=== PATIENT | female | born 1945 ===

== ENCOUNTER 2017-09-03 21:23 | Emergency (ER) | payer MEDICARE ==
[2017-09-03 21:43] VITALS: PULSE 85; TEMP 97.9
[2017-09-03] MEDS ORDERED: Pantoprazole 40 mg EC Tab PO STA (22:33)
--- NOTE | 2017-09-03 22:33 | C.PDOC ---
History Of Present Illness 72 y/o female brought to the ED via EMS after she began feeling lightheaded, dizzy, and anxious. States she started a new blood pressure medication, and began feeling symptoms shortly after taking it tonight. Otherwise denies any chest pain, SOB, or palpitations. Patient is speaking in complete sentences. PMHx is significant for hypertension, diabetes, hypothyroidism, anxiety, and cochlear implant placement. Time Seen by Provider: 09/03/17 22:28 Chief Complaint (Nursing): Anxiety History Per: Patient History/Exam Limitations: no limitations Onset/Duration Of Symptoms: Hrs Current Symptoms Are (Timing): Still Present Modifying Factor(s): None Severity: None Pain Scale Rating Of: 0 Associated Symptoms: Anxiety Involuntary Hold By: None Additional History Per: EMS Past Medical History Reviewed: Historical Data, Nursing Documentation, Vital Signs Vital Signs: Last Vital Signs Temp 97.9 F 09/03/17 21:34 Pulse 85 09/03/17 23:19 Resp 18 09/03/17 23:19 BP 133/67 09/03/17 23:19 Pulse Ox 98 09/03/17 23:19 - Medical History PMH: Anxiety, Diabetes, HTN, Hypothyroidism Other Surgeries: Cochlear implant - [facility] Procedures SUTURE OF LIP LACERATION (03/08/14) Family History: States: No Known Family Hx - Social History Hx Tobacco Use: No Hx Alcohol Use: No Hx Substance Use: No - Immunization History Hx Tetanus Toxoid Vaccination: No Hx Influenza Vaccination: Yes Hx Pneumococcal Vaccination: Yes Review Of Systems Cardiovascular: Positive for: Light Headedness. Negative for: Chest Pain, Palpitations Respiratory: Negative for: Shortness of Breath Neurological: Positive for: Dizziness Psych: Positive for: Anxiety Physical Exam - Physical Exam Appears: No Acute Distress Skin: Warm, Dry Head: Normacephalic Eye(s): bilateral: Normal Inspection Oral Mucosa: Moist Neck: Trachea Midline, Supple Chest: Symmetrical Cardiovascular: Rhythm Regular Respiratory: No Rales, No Rhonchi, No Wheezing Gastrointestinal/Abdominal: Soft, No Tenderness, No Distention Extremity: Bilateral: Atraumatic, Normal Color And Temperature, Normal ROM Pulses: Left Dorsalis Pedis: Normal, Right Dorsalis Pedis: Normal Neurological/Psych: Oriented x3, Other (Appears anxious) Gait: Steady ED Course And Treatment O2 Sat by Pulse Oximetry: 100 (RA) Pulse Ox Interpretation: Normal Progress Note: Patient treated with PO Meclizine, Protonix, and Zofran ODT. Reevaluation Time: 00:56 Reassessment Condition: Improved Disposition Counseled Patient/Family Regarding: Studies Performed, Diagnosis, Need For Followup, Rx Given - Disposition Referrals: Ariana Howard MD [Staff Provider] - Disposition: HOME/ ROUTINE Disposition Time: 22:33 Condition: FAIR Additional Instructions: Please return if symptoms recur Prescriptions: Lorazepam [Ativan] 0.5 mg PO BID PRN #10 tab PRN Reason: Anxiety Instructions: Anxiety, Adult (DC) Forms: [employer] (Arabic) - Clinical Impression Clinical Impression: Anxiety - Scribe Statement The provider has reviewed the documentation as recorded by the Scribe (Lori Kuhn) Provider Attestation: All medical record entries made by the Scribe were at my direction and personally dictated by me. I have reviewed the chart and agree that the record accurately reflects my personal performance of the history, physical exam, medical decision making, and the department course for this patient. I have also personally directed, reviewed, and agree with the discharge instructions and disposition.
[2017-09-03] MEDS ORDERED: Pantoprazole 40 mg EC Tab PO ONE (22:45)
[2017-09-03 23:20] VITALS: BP 133/67; RESP 18
[2017-09-04] MEDS ORDERED: Sucralfate 1 gm/10 ml Oral Susp UD PO STA (00:26)
[2017-09-04] MEDS ORDERED: Sucralfate 1 gm/10 ml Oral Susp UD ONE (00:30)
[2017-09-04 00:59] VITALS: O2SAT 100
== END 2017-09-04 01:10 | disposition home or self-care (01) ==
LOC: C.ER 21:23
DX: F41.9 Anxiety disorder, unspecified (principal)

== ENCOUNTER 2017-09-07 18:35 | Emergency (ER) | payer MEDICARE ==
[2017-09-07 18:44] VITALS: RESP 16; TEMP 98.2; O2SAT 100
[2017-09-07] MEDS ORDERED: Sodium Chloride 0.9% 1,000 ML IV ONE (19:55)
--- NOTE | 2017-09-07 19:58 | C.PDOC ---
Chief Complaint (Nursing): High Blood Pressure Past Medical History Vital Signs: Last Vital Signs Temp 98.2 F 09/07/17 18:37 Pulse 85 09/07/17 18:37 Resp 16 09/07/17 18:37 BP 165/93 H 09/07/17 18:37 Pulse Ox 100 09/07/17 18:37 - Medical History PMH: Anxiety, Diabetes, HTN, Hypothyroidism - [facility] Procedures SUTURE OF LIP LACERATION (03/08/14) - Social History Hx Tobacco Use: No Hx Alcohol Use: No Hx Substance Use: No - Immunization History Hx Tetanus Toxoid Vaccination: No Hx Influenza Vaccination: Yes Hx Pneumococcal Vaccination: Yes ED Course And Treatment O2 Sat by Pulse Oximetry: 100 Disposition - Disposition
--- NOTE | 2017-09-07 19:59 | C.PDOC ---
History Of Present Illness 72 year old female is sent to the ED by Dr. Mcdonald for evaluation of headache and HTN. Patient reports she feel pressure in the back of her neck. Patient's BP on arrival was noted to be 163/93. Patient denies headache, blurry vision, nausea, vomit, CP, SOB. Chief Complaint (Nursing): High Blood Pressure History Per: Patient History/Exam Limitations: no limitations Onset/Duration Of Symptoms: Days Current Symptoms Are (Timing): Still Present Associated Symptoms: Headache Quality Of Symptoms: Asymptomatic Recent travel outside of the [place]: No Additional History Per: Patient Past Medical History Reviewed: Historical Data, Nursing Documentation, Vital Signs Vital Signs: Last Vital Signs Temp 98.2 F 09/07/17 18:37 Pulse 85 09/07/17 18:37 Resp 16 09/07/17 18:37 BP 173/82 H 09/07/17 21:01 Pulse Ox 100 09/07/17 21:55 - Medical History PMH: Anxiety, Diabetes, HTN, Hypothyroidism Surgical History: No Surg Hx - [facility] Procedures SUTURE OF LIP LACERATION (03/08/14) Family History: States: Unknown Family Hx - Social History Hx Tobacco Use: No Hx Alcohol Use: No Hx Substance Use: No - Immunization History Hx Tetanus Toxoid Vaccination: No Hx Influenza Vaccination: Yes Hx Pneumococcal Vaccination: Yes Review Of Systems Constitutional: Negative for: Fever, Chills Eyes: Negative for: Vision Change Cardiovascular: Negative for: Chest Pain Respiratory: Negative for: Shortness of Breath Gastrointestinal: Negative for: Nausea, Vomiting Musculoskeletal: Positive for: Neck Pain Neurological: Positive for: Headache. Negative for: Weakness, Numbness, Dizziness Physical Exam - Physical Exam Appears: Non-toxic, No Acute Distress Skin: Normal Color, Warm, Dry Head: Atraumatic, Normacephalic Eye(s): bilateral: Normal Inspection Oral Mucosa: Moist Neck: Normal ROM, Supple Chest: Symmetrical Cardiovascular: Rhythm Regular Respiratory: Normal Breath Sounds, No Rales, No Rhonchi, No Wheezing Gastrointestinal/Abdominal: Soft, No Tenderness, No Guarding, No Rebound Extremity: Normal ROM, No Tenderness, No Swelling Neurological/Psych: Oriented x3, Normal Speech Gait: Steady ED Course And Treatment - Laboratory Results Result Diagrams: 09/07/17 20:17 09/07/17 20:17 ECG: Interpreted By Me, Viewed By Me ECG Rhythm: Sinus Rhythm ECG Interpretation: No Acute Changes Interpretation Of ECG: NSR, possible LAE, borderline tracings Rate From EC O2 Sat by Pulse Oximetry: 100 (ON RA) Pulse Ox Interpretation: Normal - CT Scan/US CT Cspine Other Rad Studies (CT/US): Read By Radiologist, Radiology Report Reviewed CT/US Interpretation: FINDINGS: Vertebrae: Unremarkable. No acute fracture. Discs/spinal canal/neural foramina: C12: Unremarkable. C2-3: Unremarkable. C3 -4: Posterior disc osteophyte ridge. Mild disc space narrowing. The stenosis. C4-5: Unremarkable. C5-6: Uncovertebral hypertrophy. Mild bilateral foraminal stenosis. No central stenosis. C6-7: Unremarkable. C7-T1: Unremarkable No acute findings. No spinal canal stenosis. Soft tissues: There is calcification noted within the palatine tonsils bilaterally. The left lobe of the thyroid is not clearly seen. Auditory: The ossicles in the left middle ear are not seen. There is under pneumatization of the left. mastoid.Incidental note is made of opacification of the right mastoid air cells and a transmastoid right. cochlear implant. Lung apices: Unremarkable as visualized. IMPRESSION: 1. Mild degenerative disc disease. Mild foraminal stenosis at C5-6. 2. Fluid noted within the right mastoid air cells may be related to transmastoid right cochlear implant. Clinical correlation needed. 3. 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 Under pneumatization of the left mastoid. Thank you for allowing us to participate in the care of your patient. Dictated and Authenticated by: Alisha Herrera MD. 09/07/2017 9:18 PM Eastern Time ([place] & [place]) CT head Other Rad Studies (CT/US): Read By Radiologist, Radiology Report Reviewed CT/US Interpretation: FINDINGS: Brain: Unremarkable. No hemorrhage. No significant white matter disease. No edema. Ventricles: Unremarkable. No ventriculomegaly. Bones/joints: Unremarkable. No acute fracture. Soft tissues : Unremarkable. Sinuses: A mucus retention cyst is noted in the floor the right maxillary sinus. Mastoid air cells: Fluid/soft tissue is noted within the right mastoid air cells. There is under. pneumatization of the left mastoid air cells. Auditory system: The left ossicles are absent from the middle ear cavity.The wire from the device. terminates within the right cochlea. Tubes, lines and devices: Beam hardening artifact is noted related to cochlear implant device. implanted within the soft tissues of the scalp overlying the right posterior parietal bone. This degrades. images of the right cerebral hemisphere. IMPRESSION: 1. Images degraded by cochlear implant. 2. Soft tissue/fluid noted within the right mastoid may be related to transmastoid placement of. cochlear implant. Clinical correlation suggested... Thank you for allowing us to participate in the care of your patient. Dictated and Authenticated by: Alisha Herrera MD. 09/07/2017 9:27 PM Eastern Time ([place] & [place]) Medical Decision Making Medical Decision Making: Impression: Sent by Plan: * CT CSpine * CT head * Ativan 0.25 mg PO * Coreg 25 mg PO * Norvasac 5 mg PO * IV fluids * Toradol 30 mg IVP 21:54 - spoke with Dr. Mcdonald and Dr. Anita Lane about the patient, both agree with plan for follow up in their office. Patient feels much better will be D/C home. Disposition Discussed With Dr.: Michael Mcdonald (notofoed Dr. Gardner) Doctor Will See Patient In The: Office Counseled Patient/Family Regarding: Diagnosis - Disposition Referrals: Ariana Howard MD [Staff Provider] - Disposition: HOME/ ROUTINE Disposition Time: 21:58 Condition: IMPROVED Prescriptions: ALPRAZolam [Xanax] 0.25 mg PO BID #7 tab Naproxen 375 mg PO TIDPC #14 tablet Instructions: High Blood Pressure (DC), Hyponatremia (DC) Forms: [employer] (Czech) - POA Present On Arrival: None - Clinical Impression Clinical Impression: Hypertension, Cervical arthritis, Hyponatremia - Scribe Statement The provider has reviewed the documentation as recorded by the Scribe Sterling Garcia All medical record entries made by the Scribe were at my direction and personally dictated by me. I have reviewed the chart and agree that the record accurately reflects my personal performance of the history, physical exam, medical decision making, and the department course for this patient. I have also personally directed, reviewed, and agree with the discharge instructions and disposition.
[2017-09-07 20:23] LABS: BASO # 0.1 K/uL (0.0-0.2); BASO % 1.8 % (0.0-2.0); EOS # 0.2 K/uL (0.0-0.7); EOS % 2.5 % (0.0-4.0); HEMOGLOBIN 11.1 g/dL (11.0-16.0); LYMPH # 3.5 K/uL (1.0-4.3); LYMPH % 55.9 % (20.0-40.0); MEAN CELL VOLUME 61.9 fL (81.0-99.0); MEAN CORPUSCULAR HEMOGLOBIN 19.8 pg (27.0-31.0); MEAN PLATELET VOLUME 8.1 fL (7.2-11.7); MONO # 0.4 K/uL (0.0-0.8); MONO % 5.6 % (0.0-10.0); NEUT # 2.2 K/uL (1.8-7.0); NEUT % 34.2 % (50.0-75.0); NRBC % 0.2 % (0.0-2.0); RBC 5.63 Mil/uL (3.80-5.20); RED CELL DISTRIBUTION WIDTH 16.4 % (11.5-14.5); WHITE BLOOD COUNT 6.3 K/uL (4.8-10.8)
[2017-09-07 20:40] LABS: ALB/GLOB RATIO 1.5 (1.0-2.1); ALBUMIN 5.2 g/dL (3.5-5.0); ALT/SGPT 29 U/L (9-52); AST/SGOT 32 U/L (14-36); BLOOD UREA NITROGEN 12 mg/dL (7-17); CALCIUM 10.1 mg/dl (8.6-10.4); GFR AFRICAN-AMERICAN > 60; GFR NON-AFRICAN AMERICAN > 60
[2017-09-07] MEDS ORDERED: Sodium Chloride 0.9% 1,000 ML ONE (20:53)
[2017-09-07 22:01] VITALS: BP 118/62; PULSE 69
--- NOTE | 2017-09-08 08:45 | CT ---
PROCEDURE: CT HEAD WITHOUT CONTRAST. HISTORY: Headache COMPARISON: None available. TECHNIQUE: Axial computed tomography images were obtained through the head/brain without intravenous contrast. Radiation dose: Total exam DLP = 781.07 mGy-cm. This CT exam was performed using one or more of the following dose reduction techniques: Automated exposure control, adjustment of the mA and/or kV according to patient size, and/or use of iterative reconstruction technique. FINDINGS: HEMORRHAGE: No intracranial hemorrhage. BRAIN: Evaluation of the right parietal lobe is limited due to extensive streak artifacts from right cochlea implant. There are mild chronic microangiopathic changes. There is no mass, mass effect or abnormal extra-axial fluid collection. There is no territorial infarction. There are coarse atherosclerotic calcifications in the cavernous carotid arteries. VENTRICLES: There is mild age-related global parenchymal volume loss and proportionate enlargement of the ventricles and cortical sulci. CALVARIUM: The skull base and calvarium are normal. PARANASAL SINUSES: There is a small retention cyst/ polyp in the right maxillary sinus. The remaining included paranasal sinuses are predominantly clear. MASTOID AIR CELLS: Status post right mastoidectomy. Cough clear implant is visualized and there is fluid in the mastoid tip. The left mastoid air cells are underdeveloped. OTHER FINDINGS: None. IMPRESSION: Normal CT of the Head.
--- NOTE | 2017-09-08 09:40 | CT ---
PROCEDURE: CT Cervical Spine without contrast HISTORY: neck pressure COMPARISON: None available. TECHNIQUE: Axial computed tomography images were obtained of the cervical spine without the use of intravenous contrast. Coronal and sagittal reformatted images were created and reviewed. Radiation dose: Total exam DLP = 390.93 mGy-cm. This CT exam was performed using one or more of the following dose reduction techniques: Automated exposure control, adjustment of the mA and/or kV according to patient size, and/or use of iterative reconstruction technique. FINDINGS: VERTEBRAE: There is mild dextrocurvature in the cervical spine. There is normal alignment of the cervical vertebral bodies. There is straightening of the cervical spine with loss of normal cervical lordosis. Vertebral height is normal. Bone mineralization is normal. There is no acute fracture or traumatic anterior listhesis. The craniocervical junction is normal. The atlantoaxial joint normal. DISCS/SPINAL CANAL/NEURAL FORAMINA: There is mild multilevel degenerative disc disease due to combination of disc osteophyte complexes and multilevel facet arthropathy, worse at C5-6 with [id number] right and severe left neural foraminal narrowing and mild spinal canal stenosis PARASPINAL SOFT TISSUES: Unremarkable. OTHER FINDINGS: None. IMPRESSION: No acute fracture or traumatic anterior listhesis. Straightening of the cervical spine may be positional or related to muscle spasm. . Mild multilevel degenerative disc disease, worse at C5-6 with moderate to severe right and severe left neural foraminal narrowing and mild spinal canal stenosis. A preliminary report was provided by [employer].
--- NOTE | 2017-09-11 12:05 | CARD ---
APPROVED REPORT EKG Measurement Heart [id number] <Conclusion> Normal sinus rhythm Possible Left atrial enlargement Borderline ECG
== END 2017-09-07 22:25 | disposition home or self-care (01) ==
LOC: C.ER 18:35
DX: I10 Essential (primary) hypertension (principal); M13.88 Other specified arthritis, other site; E87.1 Hypo-osmolality and hyponatremia
CPT/HCPCS: 70450; 72125; 80053; 85025; 93005; 96374; 96375; 99284; J1885; J2060; J7030

== ENCOUNTER 2017-09-25 16:14 | Inpatient (IN) | payer MEDICARE ==
--- NOTE | 2017-09-25 18:24 | RAD ---
Date of service: 09/25/2017 PROCEDURE: CHEST RADIOGRAPH, 1 VIEW HISTORY: SOB COMPARISON: None available. FINDINGS: LUNGS: Clear. PLEURA: No pneumothorax or pleural fluid seen. CARDIOVASCULAR: Atherosclerotic aortic calcifications. Cardiomediastinal silhouette enlarged. OSSEOUS STRUCTURES: Degenerative changes. VISUALIZED UPPER ABDOMEN: Normal. OTHER FINDINGS: None. IMPRESSION: No active disease.
--- NOTE | 2017-09-25 18:45 | C.PDOC ---
History Of Present Illness 72 year old female presents to the ER stating she has been mildly dizzy for the past few days. Patient had a similar presentation for the same before on and was found to be hyponatremic with a sodium of 127, at the time patient left home stating she would follow up as outpatient. During prior visit patient was educated not to overdrink water as she was drinking 8 large glasses in the morning, she now claims she only drinks 1-2 large glasses a day. Denies fever, chills, nausea, or vomiting. Time Seen by Provider: 09/25/17 17:52 Chief Complaint (Nursing): Dizziness/Lightheaded History Per: Patient History/Exam Limitations: no limitations Onset/Duration Of Symptoms: Days Current Symptoms Are (Timing): Still Present Seizure Or Post-ictal Symptoms: None Possible Causative Factor(s): Other (Not known) Fall Associated With With Symptoms: No Recent travel outside of the [place]: No Past Medical History Reviewed: Historical Data, Nursing Documentation, Vital Signs Vital Signs: Last Vital Signs Temp 98.3 F 09/25/17 16:31 Pulse 74 09/25/17 19:42 Resp 18 09/25/17 19:42 BP 138/76 09/25/17 19:42 Pulse Ox 99 09/25/17 19:30 - Medical History PMH: Anxiety, Diabetes, HTN, Hyperthyroidism (Thyroidectomy), Hypothyroidism - [facility] Procedures SUTURE OF LIP LACERATION (03/08/14) Family History: States: No Known Family Hx - Social History Hx Tobacco Use: No Hx Alcohol Use: No Hx Substance Use: No - Immunization History Hx Tetanus Toxoid Vaccination: No Hx Influenza Vaccination: Yes Hx Pneumococcal Vaccination: Yes Review Of Systems Constitutional: Negative for: Fever, Chills Cardiovascular: Negative for: Chest Pain, Palpitations Respiratory: Negative for: Cough, Shortness of Breath Gastrointestinal: Negative for: Nausea, Vomiting Neurological: Positive for: Dizziness. Negative for: Weakness, Numbness Physical Exam - Physical Exam Appears: Non-toxic, Other (Elderly, anxious) Skin: Normal Color, Warm, Dry Head: Atraumatic, Normacephalic Eye(s): bilateral: Normal Inspection, PERRL, EOMI Ear(s): Bilateral: Normal (Hard of hearing) Oral Mucosa: Moist Neck: Normal, Supple Chest: Symmetrical, No Tenderness Cardiovascular: Rhythm Regular Respiratory: Normal Breath Sounds, No Rales, No Rhonchi, No Wheezing Gastrointestinal/Abdominal: Soft, No Tenderness Back: No CVA Tenderness Neurological/Psych: Oriented x3, Normal Speech ED Course And Treatment - Laboratory Results Result Diagrams: 09/25/17 18:48 09/25/17 18:48 Lab Interpretation: Abnormal (+ hyponatremia) ECG: Interpreted By Me ECG Rhythm: Sinus Rhythm ECG Interpretation: Normal Rate From EC O2 Sat by Pulse Oximetry: 99 Pulse Ox Interpretation: Normal - Radiology CXR: Interpreted by Me CXR Interpretation: Yes: No Acute Disease - Other Rad cxr X-Ray: Viewed By Me, Read By Radiologist Interpretation: IMPRESSION: No active disease. Reevaluation Time: 19:28 Reassessment Condition: Unchanged - Physician Consult Information Outcome Of Conversation: 1914: d/w Dr. Gonzalez, covering Dr. Jay Howard's pt's, . ok to admit. 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 Disposition Doctor Will See Patient In The: Hospital Counseled Patient/Family Regarding: Studies Performed, Diagnosis - Disposition Disposition: HOSPITALIZED Disposition Time: 19:29 Condition: GOOD - Clinical Impression Clinical Impression: Dizziness, Hyponatremia - Scribe Statement The provider has reviewed the documentation as recorded by the Scribyany Cruz All medical record entries made by the Carlozibe were at my direction and personally dictated by me. I have reviewed the chart and agree that the record accurately reflects my personal performance of the history, physical exam, medical decision making, and the department course for this patient. I have also personally directed, reviewed, and agree with the discharge instructions and disposition.
[2017-09-25 18:53] LABS: MEAN CELL VOLUME 61.7 fL (81.0-99.0); MEAN CORPUSCULAR HEMOGLOBIN 19.9 pg (27.0-31.0); MEAN CORPUSCULAR HGB CONC 32.3 g/dL (33.0-37.0); MEAN PLATELET VOLUME 8.3 fL (7.2-11.7); PLATELET COUNT 328 K/uL (130-400); RED CELL DISTRIBUTION WIDTH 16.4 % (11.5-14.5); WHITE BLOOD COUNT 6.9 K/uL (4.8-10.8)
[2017-09-25 19:04] LABS: SQUAMOUS EPITHIAL < 1 /hpf (0-5); URINE BILIRUBIN NEGATIVE (NEGATIVE); URINE BLOOD NEGATIVE (NEGATIVE); URINE CLARITY Clear (Clear); URINE COLOR Straw (YELLOW); URINE GLUCOSE (UA) 2+ mg/dL (Normal); URINE LEUKOCYTE ESTERASE NEG Leu/uL (Negative); URINE PROTEIN NEGATIVE (NEGATIVE); URINE UROBILINOGEN NORMAL mg/dL (0.2-1.0)
[2017-09-25 19:14] LABS: ALB/GLOB RATIO 1.5 (1.0-2.1); ALBUMIN 4.9 g/dL (3.5-5.0); ALT/SGPT 27 U/L (9-52); AST/SGOT 26 U/L (14-36); B-TYPE NATRIURETIC PEPTIDE 96.9 pg/mL (0-900); BLOOD UREA NITROGEN 11 mg/dL (7-17); CALCIUM 9.1 mg/dl (8.6-10.4); GFR AFRICAN-AMERICAN > 60; GFR NON-AFRICAN AMERICAN > 60
[2017-09-25 19:42] LABS: BASOPHIL 1 % (0-2); EOSINOPHIL 3 % (0-4); LYMPHOCYTE 30 % (20-40); MONOCYTE 8 % (0-10); NEUTROPHIL 47 % (50-75); PLATELET ESTIMATE NORMAL (NORMAL); REACTIVE LYMPHOCYTES 11 % (0-0); TOTAL CELLS COUNTED 100
[2017-09-25 19:43] LABS: ANISOCYTOSIS SLIGHT; HYPOCHROMIC MODERATE; MICROCYTOSIS MODERATE; OVALOCYTES SLIGHT; TARGET CELLS SLIGHT; TEARDROP CELLS SLIGHT
[2017-09-25 19:44] LABS: BURR CELLS SLIGHT; LARGE PLATELETS PRESENT; SCHISTOCYTES SLIGHT
[2017-09-25] MEDS: Sodium Chloride 0.9% 1,000 ML IV SCH (20:45)
--- NOTE | 2017-09-25 23:57 | CP.PCM.HP ---
History of Present Illness - History of Present Illness History of Present Illness: History Of Present Illness 72 year old female presents to the ER stating she has been mildly dizzy for the past few days. Patient had a similar presentation for the same before on and was found to be hyponatremic with a sodium of 127, at the time patient left home stating she would follow up as outpatient. During prior visit patient was educated not to overdrink water as she was drinking 8 large glasses in the morning, she now claims she only drinks 1-2 large glasses a day. Denies fever, chills, nausea, or vomiting. Past Patient History - Infectious Disease Hx of Infectious Diseases: None - Past Social History Smoking Status: Never Smoked - CARDIAC Hx Hypertension: Yes - NEUROLOGICAL Hx Dizziness: Yes - HEENT Hx HEENT Problems: Yes 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 - ENDOCRINE/METABOLIC Hx Diabetes Mellitus Type 2: Yes Hx Hyperthyroidism: Yes (Thyroidectomy) Hx Hypothyroidism: Yes - INTEGUMENTARY Hx Dermatological Problems: No - MUSCULOSKELETAL/RHEUMATOLOGICAL Hx Musculoskeletal Disorders: No Hx Falls: Yes - GASTROINTESTINAL Hx Gastrointestinal Disorders: No - GENITOURINARY/GYNECOLOGICAL Hx Genitourinary Disorders: No - PSYCHIATRIC Hx Substance Use: No - SURGICAL HISTORY Hx Surgeries: Yes Hx Section: Yes (x2) Hx Hysterectomy: Yes Hx Thyroidectomy: Yes Other/Comment: Cochlear Implant - ANESTHESIA Hx Anesthesia: Yes Hx Anesthesia Reactions: No Meds Allergies/Adverse Reactions: Allergies Allergy/AdvReac Type Severity Reaction Status Date / Time clopidogrel [From Plavix] Allergy Severe ANAPHYLAXIS Verified 09/07/17 18:37 clindamycin Allergy Verified 09/25/17 16:40 hydralazine Allergy Verified 09/25/17 16:40 Results - Vital Signs Recent Vital Signs: Last Vital Signs Temp 98 F 09/25/17 21:25 Pulse 73 09/25/17 21:25 Resp 18 09/25/17 21:25 BP 139/74 09/25/17 23:31 Pulse Ox 99 09/25/17 21:25 - Labs Result Diagrams: 09/25/17 18:48 09/25/17 18:48 Labs: Laboratory Results - last 24 hr 09/25/17 09/25/17 09/25/17 18:48 18:48 18:48 WBC 6.9 RBC 5.50 H Hgb 11.0 Hct 33.9 L MCV 61.7 L MCH 19.9 L MCHC 32.3 L RDW 16.4 H Plt Count 328 MPV 8.3 Neutrophils % (Manual) 47 L Lymphocytes % (Manual) 30 Reactive Lymphs % 11 H Monocytes % (Manual) 8 Eosinophils % (Manual) 3 Basophils % (Manual) 1 Platelet Estimate Normal Large Platelets Present Hypochromasia (manual) Moderate Anisocytosis (manual) Slight Microcytosis (manual) Moderate Target Cells Slight Tear Drop Cells Slight Ovalocytes Slight Cynthia Cells Slight Schistocytes Slight Sodium 129 L Potassium 4.7 Chloride 93 L Carbon Dioxide 20 L Anion Gap 21 H BUN 11 Creatinine 0.5 L Est GFR ( Amer) > 60 Est GFR (Non-Af Amer) > 60 POC Glucose (mg/dL) Random Glucose 135 H Calcium 9.1 Total Bilirubin 0.5 AST 26 ALT 27 Alkaline Phosphatase 83 Troponin I < 0.0120 NT-Pro-B Natriuret Pep 96.9 Total Protein 8.1 Albumin 4.9 Globulin 3.2 Albumin/Globulin Ratio 1.5 Urine Color Straw Urine Clarity Clear Urine pH 6.0 Ur Specific [place] 1.008 Urine Protein Negative Urine Glucose (UA) 2+ H Urine Ketones Negative Urine Blood Negative Urine Nitrate Negative Urine Bilirubin Negative Urine Urobilinogen Normal Ur Leukocyte Esterase Neg Urine WBC (Auto) 1 Urine RBC (Auto) < 1 Ur Squamous Epith Cells < 1 09/25/17 22:38 WBC RBC Hgb Hct MCV MCH MCHC RDW Plt Count MPV Neutrophils % (Manual) Lymphocytes % (Manual) Reactive Lymphs % Monocytes % (Manual) Eosinophils % (Manual) Basophils % (Manual) Platelet Estimate Large Platelets Hypochromasia (manual) Anisocytosis (manual) Microcytosis (manual) Target Cells Tear Drop Cells Ovalocytes Cynthia Cells Schistocytes Sodium Potassium Chloride Carbon Dioxide Anion Gap BUN Creatinine Est GFR ( Amer) Est GFR (Non-Af Amer) POC Glucose (mg/dL) 143 H Random Glucose Calcium Total Bilirubin AST ALT Alkaline Phosphatase Troponin I NT-Pro-B Natriuret Pep Total Protein Albumin Globulin Albumin/Globulin Ratio Urine Color Urine Clarity Urine pH Ur Specific [place] Urine Protein Urine Glucose (UA) Urine Ketones Urine Blood Urine Nitrate Urine Bilirubin Urine Urobilinogen Ur Leukocyte Esterase Urine WBC (Auto) Urine RBC (Auto) Ur Squamous Epith Cells
[2017-09-26 00:21] VITALS: RESP 20
[2017-09-26] MEDS: Multiple Vitamins Tab PO SCH (09:00)
[2017-09-26] MEDS: Enoxaparin 40 mg Syringe SC SCH (09:01)
[2017-09-26] MEDS: Sodium Chloride 0.9% 1,000 ML IV SCH ×2 (09:10→18:24)
[2017-09-26 16:15] LABS: HEMOGLOBIN 10.8 g/dL (11.0-16.0); MEAN CORPUSCULAR HEMOGLOBIN 20.2 pg (27.0-31.0); MEAN CORPUSCULAR HGB CONC 32.5 g/dL (33.0-37.0); RBC 5.36 Mil/uL (3.80-5.20); RED CELL DISTRIBUTION WIDTH 16.7 % (11.5-14.5); WHITE BLOOD COUNT 5.8 K/uL (4.8-10.8)
[2017-09-26 16:21] LABS: MEAN CELL VOLUME 62.2 fL (81.0-99.0)
[2017-09-26 16:30] LABS: BLOOD UREA NITROGEN 8 mg/dL (7-17); CALCIUM 9.4 mg/dl (8.6-10.4); GFR AFRICAN-AMERICAN > 60; GFR NON-AFRICAN AMERICAN > 60
--- NOTE | 2017-09-26 22:24 | CP.PCM.PN ---
Subjective - Date & Time of Evaluation Date of Evaluation: 09/26/17 Time of Evaluation: 18:00 - Subjective Subjective: Pt seen and examined at bedside, Objective - Vital Signs/Intake and Output Vital Signs (last 24 hours): Temp Pulse Resp BP Pulse Ox 98.8 F 72 20 163/84 H 97 09/26/17 15:05 09/26/17 15:05 09/26/17 15:05 09/26/17 17:42 09/26/17 15:05 Intake and Output: 09/26/17 09/27/17 18:59 06:59 Intake Total 500 250 Balance 500 250 - Medications Medications: Current Medications Amlodipine Besylate (Norvasc) 5 mg PO BID [facility] Last Admin: 09/26/17 17:41 Dose: 5 mg Aspirin (Ecotrin) 81 mg PO DAILY [facility] Last Admin: 09/26/17 09:00 Dose: 81 mg Calcium Carbonate (Oscal) 500 mg PO [facility] Last Admin: 09/26/17 22:04 Dose: 500 mg Carvedilol (Coreg) 25 mg PO BID [facility] Last Admin: 09/26/17 17:42 Dose: 25 mg Enoxaparin Sodium (Lovenox) 40 mg SC DAILY [facility] Last Admin: 09/26/17 09:01 Dose: 40 mg Famotidine (Pepcid) 40 mg PO DAILY [facility] Last Admin: 09/26/17 09:00 Dose: 40 mg Glimepiride (Amaryl) 2 mg PO BID [facility] Last Admin: 09/26/17 17:41 Dose: 2 mg Home Med (Iron [Iron]) 25 mg PO DAILY [facility] Lorazepam (Ativan) 0.5 mg PO BID [facility] Last Admin: 09/26/17 22:04 Dose: 0.5 mg Losartan Potassium (Cozaar) 100 mg PO DAILY [facility] Last Admin: 09/26/17 09:00 Dose: 100 mg [facility] Admin: 09/26/17 17:38 Dose: 1,000 mg Multivitamins (Hexavitamin) 1 tab PO DAILY [facility] Last Admin: 09/26/17 09:00 Dose: 1 tab Rosuvastatin Calcium (Crestor) 5 mg PO HS [facility] Last Admin: 09/26/17 22:04 Dose: 5 mg - Labs Labs: 09/26/17 16:06 09/26/17 16:06
[2017-09-27 08:46] LABS: IRON 84 ug/dL (37-170)
[2017-09-27 08:52] LABS: BLOOD UREA NITROGEN 7 mg/dL (7-17); CALCIUM 9.7 mg/dl (8.6-10.4); GFR AFRICAN-AMERICAN > 60; GFR NON-AFRICAN AMERICAN > 60
[2017-09-27 08:55] LABS: % IRON SATURATION 21 (20-55); TOTAL IRON BINDING CAPACITY 399 ug/dL (250-450)
[2017-09-27] MEDS: Multiple Vitamins Tab PO SCH (09:23)
[2017-09-27] MEDS: Enoxaparin 40 mg Syringe SC SCH (09:23)
--- NOTE | 2017-09-27 10:01 | CP.PCM.CON ---
History of Present Illness - History of Present Illness History of Present Illness: 72 year old female presents to the ER stating she has been mildly dizzy for the past few days. Patient had a similar presentation for the same before on and was found to be hyponatremic with a sodium of 127, at the time patient left home stating she would follow up as outpatient. During prior visit patient was educated not to overdrink water as she was drinking 8 large glasses in the morning, she now claims she only drinks 1-2 large glasses a day. Denies fever, chills, nausea, or vomiting. Recently HTN difficult to control and patient with dizziness and H/As Recently pt with hyponatremia PMH: HTN DL DM 2 HEARING LOSS GERD PSH: COHLEAR IMPLANTS, EAR SURG=ERIES X 4 HYSTERECTOMY C-SECTIUONS X 2 THYROIDECTOMY Review of Systems - Constitutional Constitutional: Fatigue - EENT Eyes: absent: As Per HPI, Blind Spots, Blurred Vision, Change in Vision, Decreased Night Vision, Diplopia, Discharge, Dry Eye, Exophthalmos, Floaters, Irritation, Itchy Eyes, Loss of Peripheral Vision, Pain, Photophobia, Requires Corrective Lenses, Sees Flashes, Spots in Vision, Tunnel Vision, Other Visual Disturbances, Loss of Vision, Other Ears: Decreased Hearing, Disequilibrium - Cardiovascular Cardiovascular: Chest Pain, Dyspnea on Exertion, Palpitations - Respiratory Respiratory: absent: As Per HPI, Cough, Dyspnea, Hemoptysis, Dyspnea on Exertion , Wheezing, Snoring, Stridor, Pain on Inspiration, Chest Congestion, Excessive Mucous Production, Change in Mucous Color, Pain with Coughing, Other - Gastrointestinal Gastrointestinal: absent: As Per HPI, Abdominal Pain, Belching, Bloating, Change in Bowel Habits, Change in Stool Character, Coffee Ground Emesis, Constipation, Cramping, Diarrhea, Dyspepsia, Dysphagia, Early Satiety, Excessive Flatus, Fecal Incontinence, Heartburn, Hematemesis, Hematochezia, Loose Stools, Melena, Nausea, Odynophagia, Temesmus, Vomiting, Other - Genitourinary Genitourinary: Voiding Freq/Small Amts - Musculoskeletal Musculoskeletal: Muscle Cramps, Muscle Weakness, Myalgias Past Patient History - Infectious Disease Hx of Infectious Diseases: None - Past Medical History & Family History Pertinent Family History: brother with CKD- was on dialysis - Past Social History Smoking Status: Never Smoked Chewing Tobacco Use: No Cigar Use: No Alcohol: None Drugs: Denies Home Situation {Lives}: Alone - CARDIAC Hx Hypercholesterolemia: Yes Hx Hypertension: Yes - NEUROLOGICAL Hx Dizziness: Yes - HEENT Hx HEENT Problems: Yes 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 - ENDOCRINE/METABOLIC Hx Diabetes Mellitus Type 2: Yes Hx Hypothyroidism: Yes - INTEGUMENTARY Hx Dermatological Problems: No - MUSCULOSKELETAL/RHEUMATOLOGICAL Hx Musculoskeletal Disorders: No Hx Falls: Yes - GASTROINTESTINAL Hx Gastrointestinal Disorders: No - GENITOURINARY/GYNECOLOGICAL Hx Genitourinary Disorders: No - PSYCHIATRIC Hx Substance Use: No - SURGICAL HISTORY Hx Surgeries: Yes Hx Section: Yes (x2) Hx Hysterectomy: Yes Hx Thyroidectomy: Yes Other/Comment: Cochlear Implant - ANESTHESIA Hx Anesthesia: Yes Hx Anesthesia Reactions: No Meds Allergies/Adverse Reactions: Allergies Allergy/AdvReac Type Severity Reaction Status Date / Time clopidogrel [From Plavix] Allergy Severe ANAPHYLAXIS Verified 09/07/17 18:37 clindamycin Allergy Verified 09/25/17 16:40 hydralazine Allergy Verified 09/25/17 16:40 - Medications Medications: Current Medications Amlodipine Besylate (Norvasc) 10 mg PO DAILY [facility] Last Admin: 09/27/17 09:23 Dose: 10 mg Aspirin (Ecotrin) 81 mg PO DAILY [facility] Last Admin: 09/27/17 09:23 Dose: 81 mg Calcium Carbonate (Oscal) 500 mg PO HS [facility] Last Admin: 09/26/17 22:04 Dose: 500 mg Carvedilol (Coreg) 25 mg PO BID [facility] Last Admin: 09/27/17 09:26 Dose: 25 mg Enoxaparin Sodium (Lovenox) 40 mg SC DAILY [facility] Last Admin: 09/27/17 09:23 Dose: 40 mg Famotidine (Pepcid) 40 mg PO DAILY [facility] Last Admin: 09/27/17 09:23 Dose: 40 mg Glimepiride (Amaryl) 2 mg PO BID [facility] Last Admin: 09/27/17 09:27 Dose: 2 mg Home Med (Iron [Iron]) 25 mg PO DAILY [facility] Lorazepam (Ativan) 0.5 mg PO BID [facility] Last Admin: 09/27/17 09:26 Dose: 0.5 mg Losartan Potassium (Cozaar) 100 mg PO DAILY [facility] Last Admin: 09/27/17 09:23 Dose: 100 mg Metformin HCl (Glucophage) 1,000 mg PO BIDCC [facility] Last Admin: 09/27/17 09:23 Dose: 1,000 mg Multivitamins (Hexavitamin) 1 tab PO DAILY [facility] Last Admin: 09/27/17 09:23 Dose: 1 tab Rosuvastatin Calcium (Crestor) 5 mg PO HS [facility] Last Admin: 09/26/17 22:04 Dose: 5 mg Physical Exam - Constitutional Appears: Non-toxic, No Acute Distress - Head Exam Head Exam: ATRAUMATIC, NORMAL INSPECTION - Eye Exam Eye Exam: EOMI, Normal appearance - Neck Exam Neck exam: Positive for: Normal Inspection. Negative for: Tenderness - Respiratory Exam Respiratory Exam: Clear to Auscultation Bilateral, NORMAL BREATHING PATTERN - Cardiovascular Exam Cardiovascular Exam: REGULAR RHYTHM, +S1 - GI/Abdominal Exam GI & Abdominal Exam: Soft. absent: Tenderness - Extremities Exam Extremities exam: Positive for: normal inspection. Negative for: tenderness - Neurological Exam Neurological exam: Alert, CN II-XII Intact - Skin Skin Exam: Dry, Warm Results - Vital Signs Recent Vital Signs: Last Vital Signs Temp 98.1 F 09/27/17 08:00 Pulse 76 09/27/17 08:00 Resp 20 09/27/17 08:00 BP 151/83 H 09/27/17 09:26 Pulse Ox 100 09/27/17 08:00 - Labs Result Diagrams: 09/26/17 16:06 09/27/17 08:28 Labs: Laboratory Results - last 24 hr 09/26/17 09/26/17 09/26/17 11:17 16:06 16:06 WBC 5.8 RBC 5.36 H Hgb 10.8 L Hct 33.3 L MCV 62.2 L MCH 20.2 L MCHC 32.5 L RDW 16.7 H Plt Count 327 MPV 9.0 Differential Comment Sodium 131 L Potassium 4.5 Chloride 94 L Carbon Dioxide 24 Anion Gap 17 BUN 8 Creatinine 0.5 L Est GFR ( Amer) > 60 Est GFR (Non-Af Amer) > 60 POC Glucose (mg/dL) 126 H Random Glucose 136 H Calcium 9.4 Iron TIBC % Saturation 09/26/17 09/26/17 09/27/17 16:13 21:05 08:28 WBC RBC Hgb Hct MCV MCH MCHC RDW Plt Count MPV Differential Comment Sodium 130 L Potassium 4.4 Chloride 93 L Carbon Dioxide 26 Anion Gap 15 BUN 7 Creatinine 0.6 L Est GFR ( Amer) > 60 Est GFR (Non-Af Amer) > 60 POC Glucose (mg/dL) 151 H 175 H Random Glucose 160 H Calcium 9.7 Iron TIBC % Saturation 09/27/17 08:28 WBC RBC Hgb Hct MCV MCH MCHC RDW Plt Count MPV Differential Comment Sodium Potassium Chloride Carbon Dioxide Anion Gap BUN Creatinine Est GFR ( Amer) Est GFR (Non-Af Amer) POC Glucose (mg/dL) Random Glucose Calcium Iron 84 TIBC 399 % Saturation 21 Assessment & Plan (1) Dizziness Status: Acute (2) Hyponatremia Status: Acute (3) Hypertension Status: Acute - Assessment and Plan (Free Text) Assessment: r/o SIADH Plan: urine studies- r/o SIADH adjust BP meds
--- NOTE | 2017-09-27 12:19 | CARD ---
APPROVED REPORT Date of service: 09/25/2017 EKG Measurement Heart [id number] <Conclusion> Normal sinus rhythm Low voltage QRS Borderline ECG
[2017-09-27 17:56] LABS: OSMOLALITY,URINE 291 mosm/kg (300-1000)
[2017-09-27 21:19] LABS: URINE BILIRUBIN NEGATIVE (NEGATIVE); URINE BLOOD NEGATIVE (NEGATIVE); URINE CLARITY Clear (Clear); URINE COLOR Straw (YELLOW); URINE GLUCOSE (UA) 3+ mg/dL (Normal); URINE LEUKOCYTE ESTERASE NEG Leu/uL (Negative); URINE PROTEIN NEGATIVE (NEGATIVE); URINE UROBILINOGEN NORMAL mg/dL (0.2-1.0)
--- NOTE | 2017-09-28 07:16 | CP.PCM.PN ---
Subjective - Date & Time of Evaluation Date of Evaluation: 09/27/17 Time of Evaluation: 18:00 - Subjective Subjective: Pt is seen and examined, Objective - Vital Signs/Intake and Output Vital Signs (last 24 hours): Temp Pulse Resp BP Pulse Ox 98 F 80 20 134/81 99 09/28/17 00:00 09/28/17 00:00 09/28/17 00:00 09/28/17 00:00 09/28/17 00:00 Intake and Output: 09/28/17 09/28/17 06:59 18:59 Intake Total 500 Balance 500 - Medications Medications: Current Medications Amlodipine Besylate (Norvasc) 10 mg PO DAILY [facility] Last Admin: 09/27/17 09:23 Dose: 10 mg Aspirin (Ecotrin) 81 mg PO DAILY [facility] Last Admin: 09/27/17 09:23 Dose: 81 mg Calcium Carbonate (Oscal) 500 mg PO HS [facility] Last Admin: 09/27/17 21:09 Dose: 500 mg Carvedilol (Coreg) 25 mg PO BID [facility] Last Admin: 09/27/17 18:06 Dose: 25 mg Enoxaparin Sodium (Lovenox) 40 mg SC DAILY [facility] Last Admin: 09/27/17 09:23 Dose: 40 mg Famotidine (Pepcid) 40 mg PO DAILY [facility] Last Admin: 09/27/17 09:23 Dose: 40 mg Glimepiride (Amaryl) 2 mg PO BID [facility] Last Admin: 09/27/17 18:06 Dose: 2 mg Home Med (Iron [Iron]) 25 mg PO DAILY [facility] Lorazepam (Ativan) 0.5 mg PO BID PRN PRN Reason: Anxiety Losartan Potassium (Cozaar) 100 mg PO DAILY [facility] Last Admin: 09/27/17 09:23 Dose: 100 mg Metformin HCl (Glucophage) 1,000 mg PO BIDCC [facility] Last Admin: 09/27/17 18:05 Dose: 1,000 mg Multivitamins (Hexavitamin) 1 tab PO DAILY [facility] Last Admin: 09/27/17 09:23 Dose: 1 tab Rosuvastatin Calcium (Crestor) 5 mg PO HS [facility] Last Admin: 09/27/17 21:11 Dose: 5 mg - Labs Labs: 09/26/17 16:06 09/27/17 08:28
[2017-09-28 09:02] LABS: BLOOD UREA NITROGEN 8 mg/dL (7-17); CALCIUM 9.2 mg/dl (8.6-10.4); GFR AFRICAN-AMERICAN > 60; GFR NON-AFRICAN AMERICAN > 60
[2017-09-28] MEDS: Multiple Vitamins Tab PO SCH (11:09)
[2017-09-28] MEDS: Enoxaparin 40 mg Syringe SC SCH (11:10)
--- NOTE | 2017-09-28 12:17 | CP.PCM.PN ---
Subjective - Date & Time of Evaluation Date of Evaluation: 09/28/17 Time of Evaluation: 12:17 - Subjective Subjective: c/o dizziness and feeling tired felt much better after iv fluids yesterday na down to 128 meq/dl pt reports drinking much less fluids' Objective - Vital Signs/Intake and Output Vital Signs (last 24 hours): Temp Pulse Resp BP Pulse Ox 98 F 80 20 155/79 H 99 09/28/17 00:00 09/28/17 00:00 09/28/17 00:00 09/28/17 11:10 09/28/17 00:00 Intake and Output: 09/28/17 09/28/17 06:59 18:59 Intake Total 500 Balance 500 - Medications Medications: Current Medications Amlodipine Besylate (Norvasc) 10 mg PO DAILY [facility] Last Admin: 09/28/17 11:09 Dose: 10 mg Aspirin (Ecotrin) 81 mg PO DAILY [facility] Last Admin: 09/28/17 11:10 Dose: 81 mg Calcium Carbonate (Oscal) 500 mg PO [facility] Last Admin: 09/27/17 21:09 Dose: 500 mg Carvedilol (Coreg) 25 mg PO BID [facility] Last Admin: 09/28/17 11:10 Dose: 25 mg Enoxaparin Sodium (Lovenox) 40 mg SC DAILY [facility] Last Admin: 09/28/17 11:10 Dose: 40 mg Famotidine (Pepcid) 40 mg PO DAILY [facility] Last Admin: 09/28/17 11:17 Dose: 40 mg Ferrous Sulfate (Feosol) 325 mg PO DAILY [facility] Last Admin: 09/28/17 11:09 Dose: 325 mg Glimepiride (Amaryl) 2 mg PO BID [facility] Last Admin: 09/28/17 11:10 Dose: 2 mg Lorazepam (Ativan) 0.5 mg PO BID PRN PRN Reason: Anxiety Losartan Potassium (Cozaar) 100 mg PO DAILY [facility] Last Admin: 09/28/17 11:10 Dose: 100 mg [facility] ([facility]) [facility] Last Admin: 09/28/17 08:00 Dose: 1,000 mg Multivitamins (Hexavitamin) 1 tab PO DAILY [facility] Last Admin: 09/28/17 11:09 Dose: 1 tab Rosuvastatin Calcium (Crestor) 5 mg PO [facility] Last Admin: 09/27/17 21:11 Dose: 5 mg - Labs Labs: 09/26/17 16:06 09/28/17 08:41 - Constitutional Appears: Non-toxic, No Acute Distress - Head Exam Head Exam: NORMAL INSPECTION, NORMOCEPHALIC - Eye Exam Eye Exam: Normal appearance, PERRL - ENT Exam ENT Exam: Mucous Membranes Moist, Normal Exam - Respiratory Exam Respiratory Exam: Clear to Ausculation Bilateral, NORMAL BREATHING PATTERN - Cardiovascular Exam Cardiovascular Exam: REGULAR RHYTHM, RRR - GI/Abdominal Exam GI & Abdominal Exam: Distended, Soft, Normal Bowel Sounds - Extremities Exam Extremities Exam: Full ROM, Normal Inspection - Neurological Exam Neurological Exam: Alert, Awake, Oriented x3 - Psychiatric Exam Psychiatric exam: Normal Affect, Normal Mood - Skin Skin Exam: Dry, Intact Assessment and Plan (1) Dizziness Status: Acute (2) Hyponatremia Status: Acute (3) Hypertension Status: Acute - Assessment and Plan (Free Text) Assessment: chronic hyponatremia/ siadh? -recommend fluid restriction 1L/day -increase protein and salt in diet -monitor bmp daily
[2017-09-28] MEDS: Sodium Chloride 0.9% 1,000 ML IV SCH (13:46)
--- NOTE | 2017-09-28 23:59 | CP.PCM.PN ---
Subjective - Date & Time of Evaluation Date of Evaluation: 09/28/17 Time of Evaluation: 18:35 - Subjective Subjective: Pt seen and examined at bedside, c/o dizziness and feeling tired felt much better after iv fluids yesterday na down to 128 meq/dl pt reports drinking much less fluids' Objective - Vital Signs/Intake and Output Vital Signs (last 24 hours): Temp Pulse Resp BP Pulse Ox 97.8 F 70 20 120/70 98 09/28/17 16:38 09/28/17 16:38 09/28/17 16:38 09/28/17 17:46 09/28/17 16:38 Intake and Output: 09/28/17 09/29/17 18:59 06:59 Intake Total 360 Balance 360 - Medications Medications: Current Medications Amlodipine Besylate (Norvasc) 10 mg PO DAILY [facility] Last Admin: 09/28/17 11:09 Dose: 10 mg Aspirin (Ecotrin) 81 mg PO DAILY [facility] Last Admin: 09/28/17 11:10 Dose: 81 mg Calcium Carbonate (Oscal) 500 mg PO HS [facility] Last Admin: 09/28/17 21:42 Dose: 500 mg Carvedilol (Coreg) 25 mg PO BID [facility] Last Admin: 09/28/17 17:46 Dose: 25 mg Enoxaparin Sodium (Lovenox) 40 mg SC DAILY [facility] Last Admin: 09/28/17 11:10 Dose: 40 mg Famotidine (Pepcid) 40 mg PO DAILY [facility] Last Admin: 09/28/17 11:17 Dose: 40 mg Ferrous Sulfate (Feosol) 325 mg PO DAILY [facility] Last Admin: 09/28/17 11:09 Dose: 325 mg Glimepiride (Amaryl) 2 mg PO BID [facility] Last Admin: 09/28/17 17:45 Dose: 2 mg Sodium Chloride (Sodium Chloride 0.9%) 1,000 mls @ 50 mls/hr IV .Q20H [facility] Last Admin: 09/28/17 13:46 Dose: 50 mls/hr Lorazepam (Ativan) 0.5 mg PO BID PRN PRN Reason: Anxiety Losartan Potassium (Cozaar) 100 mg PO DAILY [facility] Last Admin: 09/28/17 11:10 Dose: 100 mg Metformin HCl (Glucophage) 1,000 mg PO BIDCC [facility] Last Admin: 09/28/17 17:48 Dose: 1,000 mg Multivitamins (Hexavitamin) 1 tab PO DAILY [facility] Last Admin: 09/28/17 11:09 Dose: 1 tab Rosuvastatin Calcium (Crestor) 5 mg PO [facility] Last Admin: 09/28/17 21:42 Dose: 5 mg - Labs Labs: 09/26/17 16:06 09/28/17 08:41
[2017-09-29 08:26] LABS: BLOOD UREA NITROGEN 13 mg/dL (7-17); CALCIUM 9.4 mg/dl (8.6-10.4); GFR AFRICAN-AMERICAN > 60; GFR NON-AFRICAN AMERICAN > 60
--- NOTE | 2017-09-29 08:45 | CP.PCM.PN ---
Subjective - Date & Time of Evaluation Date of Evaluation: 09/29/17 Time of Evaluation: 08:40 - Subjective Subjective: afebrile renal function stable sodium 134 feels better with iv saline no dizziness ROS no sob no abd pain no nauseau Objective - Vital Signs/Intake and Output Vital Signs (last 24 hours): Temp Pulse Resp BP Pulse Ox 98 F 66 20 111/67 99 09/29/17 00:00 09/29/17 00:00 09/29/17 00:00 09/29/17 00:00 09/29/17 00:00 Intake and Output: 09/29/17 09/29/17 06:59 18:59 Intake Total 600 Balance 600 - Medications Medications: Current Medications Amlodipine Besylate (Norvasc) 10 mg PO DAILY [facility] Last Admin: 09/28/17 11:09 Dose: 10 mg Aspirin (Ecotrin) 81 mg PO DAILY [facility] Last Admin: 09/28/17 11:10 Dose: 81 mg Calcium Carbonate (Oscal) 500 mg PO HS [facility] Last Admin: 09/28/17 21:42 Dose: 500 mg Carvedilol (Coreg) 25 mg PO BID [facility] Last Admin: 09/28/17 17:46 Dose: 25 mg Enoxaparin Sodium (Lovenox) 40 mg SC DAILY [facility] Last Admin: 09/28/17 11:10 Dose: 40 mg Famotidine (Pepcid) 40 mg PO DAILY [facility] Last Admin: 09/28/17 11:17 Dose: 40 mg Ferrous Sulfate (Feosol) 325 mg PO DAILY [facility] Last Admin: 09/28/17 11:09 Dose: 325 mg Glimepiride (Amaryl) 2 mg PO BID [facility] Last Admin: 09/28/17 17:45 Dose: 2 mg Sodium Chloride (Sodium Chloride 0.9%) 1,000 mls @ 50 mls/hr IV .Q20H [facility] Last Admin: 09/28/17 13:46 Dose: 50 mls/hr Lorazepam (Ativan) 0.5 mg PO BID PRN PRN Reason: Anxiety Losartan Potassium (Cozaar) 100 mg PO DAILY [facility] Last Admin: 09/28/17 11:10 Dose: 100 mg Metformin HCl (Glucophage) 1,000 mg PO BIDCC [facility] Last Admin: 09/28/17 17:48 Dose: 1,000 mg Multivitamins (Hexavitamin) 1 tab PO DAILY [facility] Last Admin: 09/28/17 11:09 Dose: 1 tab Rosuvastatin Calcium (Crestor) 5 mg PO HS [facility] Last Admin: 09/28/17 21:42 Dose: 5 mg - Labs Labs: 09/26/17 16:06 09/29/17 07:56 - Constitutional Appears: No Acute Distress - Eye Exam Eye Exam: Normal appearance - ENT Exam ENT Exam: Mucous Membranes Moist - Respiratory Exam Respiratory Exam: Clear to Ausculation Bilateral - Cardiovascular Exam Cardiovascular Exam: REGULAR RHYTHM - GI/Abdominal Exam GI & Abdominal Exam: Soft. absent: Distended, Tenderness - Extremities Exam Extremities Exam: absent: Calf Tenderness - Back Exam Back Exam: absent: CVA tenderness (L), CVA tenderness (R) - Skin Additional comments: no edema Assessment and Plan (1) Hyponatremia Status: Acute (2) Hypertension Status: Acute - Assessment and Plan (Free Text) Plan: continue iv saline for now
[2017-09-29] MEDS: Enoxaparin 40 mg Syringe SC SCH (09:52)
[2017-09-29] MEDS: Multiple Vitamins Tab PO SCH (09:52)
[2017-09-29] MEDS: Sodium Chloride 0.9% 1,000 ML IV SCH (09:53)
--- NOTE | 2017-09-30 02:09 | CP.PCM.PN ---
Subjective - Date & Time of Evaluation Date of Evaluation: 09/29/17 Time of Evaluation: 18:00 - Subjective Subjective: Pt seen and examined at bedside, is seen by and nephrology work up is in progress, Na is upto normal now, pt is anxious Objective - Vital Signs/Intake and Output Vital Signs (last 24 hours): Temp Pulse Resp BP Pulse Ox 98.4 F 76 20 118/64 98 09/30/17 00:00 09/30/17 00:00 09/30/17 00:00 09/30/17 00:00 09/30/17 00:00 Intake and Output: 09/29/17 09/30/17 18:59 06:59 Intake Total 240 360 Balance 240 360 - Medications Medications: Current Medications Amlodipine Besylate (Norvasc) 10 mg PO DAILY [facility] Last Admin: 09/29/17 09:52 Dose: 10 mg Aspirin (Ecotrin) 81 mg PO DAILY [facility] Last Admin: 09/29/17 09:52 Dose: 81 mg Calcium Carbonate (Oscal) 500 mg PO HS [facility] Last Admin: 09/28/17 21:42 Dose: 500 mg Carvedilol (Coreg) 25 mg PO BID [facility] Last Admin: 09/29/17 17:26 Dose: 25 mg Enoxaparin Sodium (Lovenox) 40 mg SC DAILY [facility] Last Admin: 09/29/17 09:52 Dose: 40 mg Famotidine (Pepcid) 40 mg PO DAILY [facility] Last Admin: 09/29/17 09:52 Dose: 40 mg Ferrous Sulfate (Feosol) 325 mg PO DAILY [facility] Last Admin: 09/29/17 09:52 Dose: 325 mg Glimepiride (Amaryl) 2 mg PO BID [facility] Last Admin: 09/29/17 17:27 Dose: 2 mg Sodium Chloride (Sodium Chloride 0.9%) 1,000 mls @ 50 mls/hr IV .Q20H [facility] Last Admin: 09/29/17 09:53 Dose: Not Given Lorazepam (Ativan) 0.5 mg PO BID PRN PRN Reason: Anxiety Last Admin: 09/29/17 22:07 Dose: 0.5 mg Losartan Potassium (Cozaar) 100 mg PO DAILY [facility] Last Admin: 09/29/17 09:52 Dose: 100 mg [facility] Last Admin: 09/29/17 17:26 Dose: 1,000 mg Multivitamins (Hexavitamin) 1 tab PO DAILY [facility] Last Admin: 09/29/17 09:52 Dose: 1 tab Rosuvastatin Calcium (Crestor) 5 mg PO HS [facility] Last Admin: 09/29/17 23:12 Dose: 5 mg - Labs Labs: 09/26/17 16:06 09/29/17 07:56 - Constitutional Appears: No Acute Distress - Head Exam Head Exam: ATRAUMATIC, NORMAL INSPECTION, NORMOCEPHALIC - Eye Exam Eye Exam: EOMI, Normal appearance, PERRL Pupil Exam: NORMAL ACCOMODATION, PERRL - Respiratory Exam Respiratory Exam: Decreased Breath Sounds - Cardiovascular Exam Cardiovascular Exam: REGULAR RHYTHM, +S1, +S2. absent: Murmur - GI/Abdominal Exam GI & Abdominal Exam: Soft, Normal Bowel Sounds. absent: Tenderness - Rectal Exam Rectal Exam: Deferred Assessment and Plan (1) Dizziness Status: Acute (2) Hyponatremia Status: Acute (3) Anxiety Status: Acute (4) Hypertension Status: Acute
[2017-09-30 07:08] LABS: BLOOD UREA NITROGEN 8 mg/dL (7-17); GFR AFRICAN-AMERICAN > 60; GFR NON-AFRICAN AMERICAN > 60
[2017-09-30] MEDS: Multiple Vitamins Tab PO SCH (10:02)
[2017-09-30] MEDS: Enoxaparin 40 mg Syringe SC SCH (10:02)
[2017-09-30] MEDS ORDERED: Calcium Carbonate 500 mg Chewable Antacid Tab PO SCH (22:00)
[2017-10-01 07:38] LABS: BLOOD UREA NITROGEN 6 mg/dL (7-17); CALCIUM 8.9 mg/dl (8.6-10.4); GFR AFRICAN-AMERICAN > 60; GFR NON-AFRICAN AMERICAN > 60
[2017-10-01 07:55] VITALS: BP 130/71; PULSE 63; TEMP 98.8; O2SAT 98
[2017-10-01] MEDS: Multiple Vitamins Tab PO SCH (09:37)
[2017-10-01] MEDS: Enoxaparin 40 mg Syringe SC SCH (09:38)
--- NOTE | 2017-10-01 10:23 | CP.PCM.PN ---
Subjective - Date & Time of Evaluation Date of Evaluation: 09/30/17 Time of Evaluation: 18:00 - Subjective Subjective: Pt seen and examined, is seen by and nephrology work up is in progress , Na is upto normal now, pt is anxious Objective - Vital Signs/Intake and Output Vital Signs (last 24 hours): Temp Pulse Resp BP Pulse Ox 98.8 F 63 20 130/71 98 10/01/17 07:54 10/01/17 07:54 10/01/17 07:54 10/01/17 09:37 10/01/17 07:54 Intake and Output: 10/01/17 10/01/17 06:59 18:59 Intake Total 790 Balance 790 - Medications Medications: Current Medications Amlodipine Besylate (Norvasc) 10 mg PO DAILY [facility] Last Admin: 10/01/17 09:38 Dose: 10 mg Aspirin (Ecotrin) 81 mg PO DAILY [facility] Last Admin: 10/01/17 09:38 Dose: 81 mg Calcium Carbonate (Tums) 500 mg PO HS [facility] Last Admin: 09/30/17 21:13 Dose: 500 mg Carvedilol (Coreg) 25 mg PO BID [facility] Last Admin: 10/01/17 09:37 Dose: 25 mg Enoxaparin Sodium (Lovenox) 40 mg SC DAILY [facility] Last Admin: 10/01/17 09:38 Dose: 40 mg Famotidine (Pepcid) 40 mg PO DAILY [facility] Last Admin: 10/01/17 09:39 Dose: 40 mg Ferrous Sulfate (Feosol) 325 mg PO DAILY [facility] Last Admin: 10/01/17 09:38 Dose: 325 mg Glimepiride (Amaryl) 2 mg PO BID [facility] Last Admin: 10/01/17 09:38 Dose: 2 mg Sodium Chloride (Sodium Chloride 0.9%) 1,000 mls @ 50 mls/hr IV .Q20H [facility] Last Admin: 09/29/17 09:53 Dose: Not Given Lorazepam (Ativan) 0.5 mg PO BID PRN PRN Reason: Anxiety Last Admin: 09/30/17 21:15 Dose: 0.5 mg Losartan Potassium (Cozaar) 100 mg PO DAILY [facility] Last Admin: 10/01/17 09:38 Dose: 100 mg Metformin HCl (Glucophage) 1,000 mg PO BIDCC [facility] Last Admin: 10/01/17 09:38 Dose: 1,000 mg Multivitamins (Hexavitamin) 1 tab PO DAILY [facility] Last Admin: 10/01/17 09:37 Dose: 1 tab Rosuvastatin Calcium (Crestor) 5 mg PO HS [facility] Last Admin: 09/30/17 21:08 Dose: 5 mg - Labs Labs: 09/26/17 16:06 10/01/17 06:52 - Constitutional Appears: No Acute Distress - Head Exam Head Exam: ATRAUMATIC, NORMAL INSPECTION, NORMOCEPHALIC - Eye Exam Eye Exam: EOMI, Normal appearance, PERRL Pupil Exam: NORMAL ACCOMODATION, PERRL - Respiratory Exam Respiratory Exam: Clear to Ausculation Bilateral, NORMAL BREATHING PATTERN - Cardiovascular Exam Cardiovascular Exam: REGULAR RHYTHM, +S1, +S2. absent: Murmur - GI/Abdominal Exam GI & Abdominal Exam: Soft, Normal Bowel Sounds. absent: Tenderness - Rectal Exam Rectal Exam: Deferred - Neurological Exam Neurological Exam: Alert, Awake, CN II-XII Intact, Normal Gait, Oriented x3 - Psychiatric Exam Psychiatric exam: Agitated, Anxious Assessment and Plan (1) Hyponatremia Assessment & Plan: Na is upto normal following her nephrology recomedations Status: Acute (2) Anxiety Status: Acute (3) Hypertension Status: Acute
--- NOTE | 2017-10-01 10:23 | CP.PCM.PN ---
Subjective - Date & Time of Evaluation Date of Evaluation: 10/01/17 Time of Evaluation: 18:00 - Subjective Subjective: Pt seen and examined, is seen by and nephrology work up is in progress , Na is upto normal now, pt is anxious Objective - Vital Signs/Intake and Output Vital Signs (last 24 hours): Temp Pulse Resp BP Pulse Ox 98.8 F 63 20 130/71 98 10/01/17 07:54 10/01/17 07:54 10/01/17 07:54 10/01/17 09:37 10/01/17 07:54 Intake and Output: 10/01/17 10/01/17 06:59 18:59 Intake Total 790 Balance 790 - Medications Medications: Current Medications Amlodipine Besylate (Norvasc) 10 mg PO DAILY [facility] Last Admin: 10/01/17 09:38 Dose: 10 mg Aspirin (Ecotrin) 81 mg PO DAILY [facility] Last Admin: 10/01/17 09:38 Dose: 81 mg Calcium Carbonate (Tums) 500 mg PO HS [facility] Last Admin: 09/30/17 21:13 Dose: 500 mg Carvedilol (Coreg) 25 mg PO BID [facility] Last Admin: 10/01/17 09:37 Dose: 25 mg Enoxaparin Sodium (Lovenox) 40 mg SC DAILY [facility] Last Admin: 10/01/17 09:38 Dose: 40 mg Famotidine (Pepcid) 40 mg PO DAILY [facility] Last Admin: 10/01/17 09:39 Dose: 40 mg Ferrous Sulfate (Feosol) 325 mg PO DAILY [facility] Last Admin: 10/01/17 09:38 Dose: 325 mg Glimepiride (Amaryl) 2 mg PO BID [facility] Last Admin: 10/01/17 09:38 Dose: 2 mg Sodium Chloride (Sodium Chloride 0.9%) 1,000 mls @ 50 mls/hr IV .Q20H [facility] Last Admin: 09/29/17 09:53 Dose: Not Given Lorazepam (Ativan) 0.5 mg PO BID PRN PRN Reason: Anxiety Last Admin: 09/30/17 21:15 Dose: 0.5 mg Losartan Potassium (Cozaar) 100 mg PO DAILY [facility] Last Admin: 10/01/17 09:38 Dose: 100 mg Metformin HCl (Glucophage) 1,000 mg PO BIDCC [facility] Last Admin: 10/01/17 09:38 Dose: 1,000 mg Multivitamins (Hexavitamin) 1 tab PO DAILY [facility] Last Admin: 10/01/17 09:37 Dose: 1 tab Rosuvastatin Calcium (Crestor) 5 mg PO [facility] Last Admin: 09/30/17 21:08 Dose: 5 mg - Labs Labs: 09/26/17 16:06 10/01/17 06:52 Assessment and Plan (1) Hyponatremia Status: Acute (2) Anxiety Status: Acute (3) Hypertension Status: Acute
--- NOTE | 2017-10-01 10:32 | CP.PCM.PN ---
Subjective - Date & Time of Evaluation Date of Evaluation: 10/01/17 Time of Evaluation: 10:31 - Subjective Subjective: feels well anxious about going home no headache confusion good uop Objective - Vital Signs/Intake and Output Vital Signs (last 24 hours): Temp Pulse Resp BP Pulse Ox 98.8 F 63 20 130/71 98 10/01/17 07:54 10/01/17 07:54 10/01/17 07:54 10/01/17 09:37 10/01/17 07:54 Intake and Output: 10/01/17 10/01/17 06:59 18:59 Intake Total 790 Balance 790 - Medications Medications: Current Medications Amlodipine Besylate (Norvasc) 10 mg PO DAILY [facility] Last Admin: 10/01/17 09:38 Dose: 10 mg Aspirin (Ecotrin) 81 mg PO DAILY [facility] Last Admin: 10/01/17 09:38 Dose: 81 mg Calcium Carbonate (Tums) [address] [facility] Last Admin: 09/30/17 21:13 Dose: 500 mg Carvedilol (Coreg) 25 mg PO BID [facility] Last Admin: 10/01/17 09:37 Dose: 25 mg Enoxaparin Sodium (Lovenox) 40 mg SC DAILY [facility] Last Admin: 10/01/17 09:38 Dose: 40 mg Famotidine (Pepcid) 40 mg PO DAILY [facility] Last Admin: 10/01/17 09:39 Dose: 40 mg Ferrous Sulfate (Feosol) 325 mg PO DAILY [facility] Last Admin: 10/01/17 09:38 Dose: 325 mg Glimepiride (Amaryl) 2 mg PO BID [facility] Last Admin: 10/01/17 09:38 Dose: 2 mg Lorazepam (Ativan) 0.5 mg PO BID PRN PRN Reason: Anxiety Last Admin: 09/30/17 21:15 Dose: 0.5 mg Losartan Potassium (Cozaar) 100 mg PO DAILY [facility] Last Admin: 10/01/17 09:38 Dose: 100 mg [facility] Last Admin: 10/01/17 09:38 Dose: 1,000 mg Multivitamins (Hexavitamin) 1 tab PO DAILY [facility] Last Admin: 10/01/17 09:37 Dose: 1 tab Rosuvastatin Calcium (Crestor) [address] [facility] Last Admin: 09/30/17 21:08 Dose: 5 mg Sodium Chloride (Sodium Chloride Tab) 1 gm PO BID [facility] - Labs Labs: 09/26/17 16:06 10/01/17 06:52 - Constitutional Appears: Non-toxic, No Acute Distress - Head Exam Head Exam: NORMAL INSPECTION, NORMOCEPHALIC - Eye Exam Eye Exam: Normal appearance, PERRL - ENT Exam ENT Exam: Mucous Membranes Moist, Normal Exam - Neck Exam Neck Exam: Full ROM, Normal Inspection - Respiratory Exam Respiratory Exam: Clear to Ausculation Bilateral, NORMAL BREATHING PATTERN - Cardiovascular Exam Cardiovascular Exam: REGULAR RHYTHM, RRR - GI/Abdominal Exam GI & Abdominal Exam: Distended, Soft, Normal Bowel Sounds - Extremities Exam Extremities Exam: Full ROM, Normal Inspection - Neurological Exam Neurological Exam: Alert, Awake, Oriented x3 - Psychiatric Exam Psychiatric exam: Normal Affect, Normal Mood - Skin Skin Exam: Dry, Intact, Warm Assessment and Plan (1) Dizziness Status: Acute (2) Hyponatremia Status: Acute (3) Hypertension Status: Acute - Assessment and Plan (Free Text) Assessment: ?tubular dysfunction causing salt loss in urine start po sodium tabs na stable at 135 close outpt f/u w/ bmp
--- NOTE | 2017-10-01 17:26 | CP.PCM.PN ---
Subjective - Date & Time of Evaluation Date of Evaluation: 10/01/17 Time of Evaluation: 11:00 - Subjective Subjective: awake, alert, no sob or chest pains. Objective - Vital Signs/Intake and Output Vital Signs (last 24 hours): Temp Pulse Resp BP Pulse Ox 98.8 F 63 20 130/71 98 10/01/17 07:54 10/01/17 07:54 10/01/17 07:54 10/01/17 09:37 10/01/17 07:54 Intake and Output: 10/01/17 10/01/17 06:59 18:59 Intake Total 790 480 Balance 790 480 - Labs Labs: 09/26/17 16:06 10/01/17 06:52 Assessment and Plan - Assessment and Plan (Free Text) Assessment: 72 year old female admitted with symptomatic hyponatremia, seen and examined. Alert and orientedx3, no acute symptoms now. Very anxious about her condition. Discussed with DR Gonzalez, planned todischarge home today on sodium tablets as advised by the nephrologyst. Advised to follow up with PMD in 1 week.
--- NOTE | 2017-10-01 23:27 | CP.PCM.DIS ---
Provider - Provider Date of Admission: 09/25/17 19:21 Attending physician: Nilton Gonzalez MD Time Spent in preparation of Discharge (in minutes): 56 Diagnosis - Discharge Diagnosis (1) Dizziness Status: Acute (2) Hyponatremia Status: Acute (3) Anxiety Status: Acute (4) Hypertension Status: Acute Hospital Course - Lab Results Lab Results: Most Recent Lab Values WBC 5.8 K/uL (4.8-10.8) 09/26/17 16:06 RBC 5.36 Mil/uL (3.80-5.20) H 09/26/17 16:06 Hgb 10.8 g/dL (11.0-16.0) L 09/26/17 16:06 Hct 33.3 % (34.0-47.0) L 09/26/17 16:06 MCV 62.2 fL (81.0-99.0) L 09/26/17 16:06 MCH 20.2 pg (27.0-31.0) L 09/26/17 16:06 MCHC 32.5 g/dL (33.0-37.0) L 09/26/17 16:06 RDW 16.7 % (11.5-14.5) H 09/26/17 16:06 Plt Count 327 K/uL (130-400) 09/26/17 16:06 MPV 9.0 fL (7.2-11.7) 09/26/17 16:06 Neutrophils % (Manual) 47 % (50-75) L 09/25/17 18:48 Lymphocytes % (Manual) 30 % (20-40) 09/25/17 18:48 Reactive Lymphs % 11 % (0-0) H 09/25/17 18:48 Monocytes % (Manual) 8 % (0-10) 09/25/17 18:48 Eosinophils % (Manual) 3 % (0-4) 09/25/17 18:48 Basophils % (Manual) 1 % (0-2) 09/25/17 18:48 Differential Comment 09/26/17 16:06 Platelet Estimate Normal (NORMAL) 09/25/17 18:48 Large Platelets Present 09/25/17 18:48 Hypochromasia (manual) Moderate 09/25/17 18:48 Anisocytosis (manual) Slight 07/10/18 18:48 Microcytosis (manual) Moderate 09/25/17 18:48 Target Cells Slight 09/25/17 18:48 Tear Drop Cells Slight 09/25/17 18:48 Ovalocytes Slight 09/25/17 18:48 Cynthia Cells Slight 09/25/17 18:48 Schistocytes Slight 09/25/17 18:48 Sodium 135 mmol/L (132-148) 10/01/17 06:52 Potassium 4.3 mmol/L (3.6-5.2) 10/01/17 06:52 Chloride 98 mmol/L (98-107) 10/01/17 06:52 Carbon Dioxide 26 mmol/L (22-30) 10/01/17 06:52 Anion Gap 15 (10-20) 10/01/17 06:52 BUN 6 mg/dL (7-17) L 10/01/17 06:52 Creatinine 0.5 mg/dL (0.7-1.2) L 10/01/17 06:52 Est GFR ( Amer) > 60 10/01/17 06:52 Est GFR (Non-Af Amer) > 60 10/01/17 06:52 POC Glucose (mg/dL) 145 mg/dL (65-110) H 10/01/17 11:05 Random Glucose 99 mg/dL (65-105) 10/01/17 06:52 Uric Acid 3.0 mg/dL (2.2-7.5) 09/28/17 08:41 Calcium 8.9 mg/dl (8.6-10.4) 10/01/17 06:52 Iron 84 ug/dL (37-170) 09/27/17 08:28 TIBC 399 ug/dL (250-450) 09/27/17 08:28 % Saturation 21 (20-55) 09/27/17 08:28 Ferritin 24.0 ng/mL 09/27/17 08:28 Total Bilirubin 0.5 mg/dL (0.2-1.3) 09/25/17 18:48 AST 26 U/L (14-36) 09/25/17 18:48 ALT 27 U/L (9-52) 09/25/17 18:48 Alkaline Phosphatase 83 U/L (38-126) 09/25/17 18:48 Troponin I < 0.0120 ng/mL (0.00-0.120) 09/25/17 18:48 NT-Pro-B Natriuret Pep 96.9 pg/mL (0-900) 09/25/17 18:48 Total Protein 8.1 g/dL (6.3-8.3) 09/25/17 18:48 Albumin 4.9 g/dL (3.5-5.0) 09/25/17 18:48 Globulin 3.2 gm/dL (2.2-3.9) 09/25/17 18:48 Albumin/Globulin Ratio 1.5 (1.0-2.1) 09/25/17 18:48 Urine Color Straw (YELLOW) 09/27/17 21:10 Urine Clarity Clear (Clear) 09/27/17 21:10 Urine pH 6.0 (5.0-8.0) 09/27/17 21:10 Ur Specific [place] 1.007 (1.003-1.030) 09/27/17 21:10 Urine Protein Negative mg/dL (NEGATIVE) 09/27/17 21:10 Urine Glucose (UA) 3+ mg/dL (Normal) H 09/27/17 21:10 Urine Ketones Negative mg/dL (NEGATIVE) 09/27/17 21:10 Urine Blood Negative (NEGATIVE) 09/27/17 21:10 Urine Nitrate Negative (NEGATIVE) 09/27/17 21:10 Urine Bilirubin Negative (NEGATIVE) 09/27/17 21:10 Urine Urobilinogen Normal mg/dL (0.2-1.0) 09/27/17 21:10 Ur Leukocyte Esterase Neg Hung/uL (Negative) 09/27/17 21:10 Urine WBC (Auto) < 1 /hpf (0-5) 09/27/17 21:10 Urine RBC (Auto) < 1 /hpf (0-3) 09/25/17 18:48 Ur Squamous Epith Cells < 1 /hpf (0-5) 09/25/17 18:48 Urine Osmolality 291 mosm/kg (300-1000) L 09/27/17 17:43 Ur Random Sodium 97 mmol/L 09/27/17 17:43 - Hospital Course Hospital Course: 72 year old female admitted with symptomatic hyponatremia, seen and examined. Alert and orientedx3, no acute symptoms now. Very anxious about her condition. Na is upto 135.B.P is stable, well cobtrolled. planned to discharge home today on sodium tablets as advised by the nephrologyst. Advised to follow up with PMD in 1 week. Discharge Exam - Head Exam Head Exam: NORMAL INSPECTION, NORMOCEPHALIC - Eye Exam Eye Exam: Normal appearance - ENT Exam ENT Exam: Normal Oropharynx - Cardiovascular Exam Cardiovascular Exam: REGULAR RHYTHM, +S1, +S2 - GI/Abdominal Exam GI & Abdominal Exam: Normal Bowel Sounds - Rectal Exam Rectal Exam: Deferred Discharge Plan - Discharge Medications Prescriptions: Lorazepam [Ativan] 0.5 mg PO BID PRN #15 tab PRN Reason: Anxiety Sodium Chloride [Sodium Chloride Tab] 1 gm PO BID #30 tab - Follow Up Plan Condition: GOOD Disposition: HOME/ ROUTINE Instructions: Dizziness, Nonvertigo, (DC), Hyponatremia (DC) Referrals: Nilton Gonzalez MD [Staff Provider] -
== END 2017-10-01 15:48 | disposition home or self-care (01) | DRG 641 ==
LOC: C.ER 16:14 → C.9E 19:21 → C.3T 20:39
PROVIDERS: ADMIT Internal Medicine; ATTEND Internal Medicine
DX: E87.1 Hypo-osmolality and hyponatremia (principal); R42 Dizziness and giddiness; E89.0 Postprocedural hypothyroidism; E11.9 Type 2 diabetes mellitus without complications; I10 Essential (primary) hypertension; E78.00 Pure hypercholesterolemia, unspecified; K21.9 Gastro-esophageal reflux disease without esophagitis; F41.9 Anxiety disorder, unspecified; H91.93 Unspecified hearing loss, bilateral; Z90.710 Acquired absence of both cervix and uterus

== ENCOUNTER 2018-08-14 14:03 | Outpatient (CLI) | payer MEDICARE | END 2018-08-14 14:04 | disposition home or self-care (01) | LOC: C.USIC 14:03 ==